=== PATIENT | female | born 1950 | race Caucasian/White ===

== ENCOUNTER → 2017-10-25 11:40 | Outpatient (CLI) | payer MEDICARE, SELFPAY ==
[2017-10-25 12:13] LABS: Bacteria 0 SEEN /hpf (None Seen); Mucous, Urine 0 SEEN /hpf (<or=2+); Red Blood Cells-Urine 0 SEEN /hpf (0-5); White Blood Cells 0 SEEN /hpf (0-5)
[2017-10-25 12:25] LABS: Color, Urine Yellow (Yellow); Glucose, Dipstick Normal (Normal); Ketone-Dipstick Negative (Negative); Leukocyte Esterase-Dipstick Negative /ul (Negative); Nitrite-Dipstick Negative (Negative); Occult Blood-Urine Negative /ul (Negative); Protein-Dipstick Negative (Negative); Specific Gravity, Urine 1.015 (1.002-1.030); Urine Bilirubin Dipstick Negative (Negative); Urine Clarity Clear (Clear); Urine Urobilinogen Normal (Normal)
[2017-10-25 12:26] LABS: Erythrocyte Sedimentation Rate 9 mm/hr (0-30)
[2017-10-25 12:39] LABS: ALB/GLOB Ratio 0.9 RATIO (0.9-2.4); AST(SGOT) 38 U/L (15-37); Alanine Aminotransfer ALT/SGPT 48 U/L (13-56); Albumin, Serum 3.6 g/dL (3.2-5.0); Alkaline Phosphatase 134 U/L (45-117); Anion Gap 4 (5-15); BUN 19 mg/dL (7-18); CRP 9.88 mg/L (0.0-3.0); Calcium,Total 8.8 mg/dL (8.5-10.1); Chloride 108 mmol/L (98-107); Cholesterol 220 mg/dL (200); Creatinine, Serum 1.19 mg/dL (0.55-1.02); EST Glomerular Filtration Rate 48 mL/min (>60); Est Glom Filt Rate - Afr Amer 58 mL/min (>60); Globulin 4.1 g/dL (2.2-4.2); Glucose 98 mg/dL (74-106); High Density Lipoprotein 57 mg/dL; Potassium 4.3 mmol/L (3.5-5.1); Protein, Total 7.7 g/dL (6.4-8.2); Rheumatoid Factor < 10.0 IU/mL (<15); Sodium Level 143 mmol/L (136-145); Squamous Epithelial Cells - UA 0-5 SEEN /hpf (5-10); Thyroid Stim Hormone (TSH) 1.18 uIU/mL (0.358-3.74); Triglycerides 60 mg/dL; Very Low Density Lipoprotein 12 mg/dL (5-40)
[2017-10-26 12:56] LABS: ANTINUCLEAR ANTIBODIES DIRECT Negative (Negative)
== END ==
PROVIDERS: Family Provider Family Medicine; PCP Family Medicine; Visit Provider Family Medicine
DX: M25.50 Pain in unspecified joint (principal); E78.2 Mixed hyperlipidemia; E03.9 Hypothyroidism, unspecified
CPT/HCPCS: 80053; 80061; 81001; 84443; 85652; 86038; 86140; 86431

== ENCOUNTER 2017-10-28 15:33 | Emergency (ER) | payer MEDICARE, SELFPAY ==
[2017-10-28] VITALS (7 sets, daily range): BP systolic 125–165; BP diastolic 56–80; PULSE 71–81; RESP 12–25; TEMP 36.6; O2SAT 97–99; BMI 36.3
--- NOTE | 2017-10-28 15:52 | EKG12_ITS ---
Test Reason : CHEST PAIN Blood Pressure : / mmHG Vent. Rate : 064 BPM Atrial Rate : 064 BPM P-R Int : 132 ms QRS Dur : 096 ms QT Int : 420 ms P-R-T Axes : 044 039 019 degrees QTc Int : 433 ms Sinus rhythm with marked sinus arrhythmia Nonspecific ST abnormality Abnormal ECG Confirmed by HARI LANDA ([id number]), avid editor OMAIRA COUGHLIN ([id number] on 11/01/2017 4:01:02 PM Referred By: Zach Jerez Confirmed By:HARI LANDA
--- NOTE | 2017-10-28 15:53 | RAD_ITS ---
STUDY: X-RAY CHEST REASON FOR EXAM: Female, 67 years old. Intermittent chest pain and shortness of breath. TECHNIQUE: 2 views COMPARISON: None. FINDINGS: Lung benjamin are generally well expanded with multifocal linear areas of atelectasis or infiltrate that are occurring mostly in the right middle lobe and left lung base. Negative for pleural effusion. Normal size heart. Normal mediastinum and shasta. Normal visualized pulmonary arteries. Normal visualized aortic arch and descending thoracic aorta. There are diffuse degenerative changes of the visualized thoracic spine. Normal visualized ribs, clavicles, and shoulders. There is no demonstrated abnormality of the visualized soft tissue structures of the upper abdomen. RAD/Chest PA and Lateral IMPRESSION: Multifocal small linear areas of atelectasis or scarring in the right middle lobe and left lower lobe. Otherwise negative for major consolidation, cardiomegaly or pleural effusion. Electronically Signed: Migdalia Mcgowan MD at 16:27 EDT , Service support ,
--- NOTE | 2017-10-28 15:57 | ED.VISSUMM ---
- ER Visit Summary Date of Service: 10/28/17 Chief Complaint: Chest pain History of Present Illness: The patient is a 67 F who presents with chest pain that has been intermittent for the past week. Patient saw her primary care physician today who referred her to the emergency department due to the chest pain and shortness of breath she has been having. Patient states her pain is over the lower sternal area. Patient denies any radiation of the pain. Patient states nothing seems to make the pain better but it is worse when she lays flat. Patient admits to some nausea but denies any vomiting. Patient admits to a cough that is worse at night and in the morning. Patient denies any fevers or chills. Patient denies any lightheadedness. Physical Examination: Vital signs are stable. Patient is afebrile. Patient is in no acute distress. Oral mucosa is pink and moist. Neck is supple. Trachea is midline. There is no JVD or lymphadenopathy. Heart was regular rate and rhythm. Lungs show bibasilar rales. There is good respiratory effort noted. Abdomen is soft. Bowel sounds are normal. There is no tenderness. Extremities are intact. There is trace edema lower extremities bilaterally. There is no calf tenderness noted. Cranial nerves II through XII are intact. There are no focal motor or sensory deficits noted. The remaining physical exam is within normal limits. Test Results: EKG showed a normal sinus rhythm with a rate of 64. There are no acute ST or T-wave changes. CBC was within normal limits. Basic metabolic profile shows slightly elevated creatinine of 1.15. Troponin was less than 0.02. BNP was normal at 31.6. D-dimer was elevated at 0.61. Chest x-ray shows atelectasis but no acute infiltrates. CTA of the chest was obtained. There is no evidence of pulmonary embolism. Emergency Department Course and Treatment: Patient felt better on reevaluation. Patient was given a prescription for an albuterol inhaler. Patient was instructed to follow-up with her primary care physician in 7-10 days. Patient understood and was agreeable with the plan. All questions were answered. Disposition: Discharged home Impression: Dyspnea This note was generated with monEchelleation software. It may contain incorrect words, spelling, and punctuation that were not noted in review of the chart prior to signing ED Disposition - Plan for ED Patient: Disposition: Home or Assisted Living Chief Complaint: Chest Pain Diagnosis: Dyspnea Instructions: ED Dyspnea Shortness of Breath Prescriptions: Albuterol Inhaler [Ventolin Hfa] 1 - 2 puff INHALATION Q4H PRN PRN #1 inhaler PRN Reason: Wheezing Referrals: Zach Jerez MD [Primary Care Provider] -
[2017-10-28] MEDS: Aspirin 81 MG TAB.CHEW 324 MG PO (16:03)
[2017-10-28 16:07] LABS: Absolute Lymphocyte Count 1.91 X10^3/ul (0.83-4.51); Absolute Neutrophil Count 3.2 X10^3/uL (2.0-7.7); Basophil# 0.03 X10^3/uL; Basophil% 0.5 % (0-1); Eosinophil# 0.18 X10^3/uL; Eosinophils% 3.2 % (0-5); Hematocrit 41.2 % (37-47); Hemoglobin 13.4 g/dl (12.0-15.0); Lymphocyte # 1.91 X10^3/ul (4.0); Lymphocyte % 34.1 % (19-41); Mean Corp Hgb Conc 32.5 g/gl (32-36); Mean Corpuscular Hgb 30.7 pg (27.0-32.0); Mean Corpuscular Volume 94.5 fL (81-99); Monocyte% 5.4 % (0-10); Neutrophil # 3.18 X10^3/uL (2.7-7.7); Neutrophil % 56.8 % (47-70); Platelet Count 233 K/mm3 (150-450); RBC Distribution Width SD 40.4 fl (35.1-43.9); Red Blood Count 4.36 M/mm3 (4.2-5.4); White Blood Count 5.6 K/mm3 (4.4-11.0)
[2017-10-28 16:24] LABS: Anion Gap 7 (5-15); BUN 15 mg/dL (7-18); Calcium,Total 8.6 mg/dL (8.5-10.1); Chloride 109 mmol/L (98-107); Creatinine, Serum 1.15 mg/dL (0.55-1.02); EST Glomerular Filtration Rate 50 mL/min (>60); Est Glom Filt Rate - Afr Amer 61 mL/min (>60); Glucose 106 mg/dL (74-106); Potassium 3.6 mmol/L (3.5-5.1); Sodium Level 143 mmol/L (136-145)
[2017-10-28 16:32] LABS: POSITIVE COUNT NO; POSITIVE DIFFERENTIAL NO; POSITIVE MORPHOLOGY NO
[2017-10-28 16:34] LABS: D-Dimer Quantitative (DVT/PE) 0.61 FEU/ug/m (0.27-0.49)
--- NOTE | 2017-10-28 16:34 | ED.RN ---
DDIMER 0.[address] LAB. DR JOHNSON AWARE
--- NOTE | 2017-10-28 16:36 | CT_ITS ---
STUDY: CTA CHEST REASON FOR EXAM: Female, 67 years old. Elevated d-dimer, intermittent chest pain and shortness of breath. History of hypothyroidism and asthma. RADIATION DOSAGE (If Supplied By Facility): CTDIvol = ( 16.22 ) mGy, DLP = ( 647.22 ) mGycm TECHNIQUE: The examination was performed with the intravenous administration of 100 ml of Isovue 370 contrast material. Post-processing of the angiographic images was performed, with multiplanar reformation and 3D reconstruction. Individualized dose optimization techniques were used for this CT. COMPARISON: Chest radiograph of October 28, 2017 FINDINGS: Normal enhancement of the main pulmonary artery and right and left pulmonary arteries. Normal enhancement of the bilateral peripheral pulmonary arteries. There is no demonstrated pulmonary embolism. Mild plaque and elongation of the thoracic aorta without aneurysm or dissection. There is no demonstrated aortic dissection. Normal heart and pericardium. Normal mediastinum. Shotty hilar lymph nodes. Generalized bronchial thickening with more substantial bronchial thickening of the bilateral lower lobes. Focal transverse linear opacity of the anterior right lung, middle lobe and focal broad linear opacity of the left lung base just above the diaphragm, anterior left lower lobe and lingula. Negative for substantial pleural effusion. Normal chest wall structures. There are degenerative changes of thoracic spine. Normal visualized upper abdomen. CT/CTA Chest W/WO Contrast IMPRESSION: Negative for pulmonary embolus. Mild atherosclerotic changes of the thoracic aorta without aneurysm or dissection. Normal cardiac size. Negative for pericardial effusion. Generalized bronchial thickening with more substantial bronchial thickening of the bilateral lower lobes. Focal linear opacities of the anterior right middle lobe and left lung base just above the diaphragm of the left lower lobe and lingula. Focal atelectasis versus scarring. Negative for pleural effusion. Electronically Signed: Migdalia Mcgowan MD at 17:43 EDT , Service support ,
[2017-10-28 16:45] LABS: BNP,B-Type NATRIURETIC PEPTIDE 31.6 pg/mL (0-100)
[2017-10-28] MEDS: 0.9% Normal Saline 1,000 ML 1000 ML IV (16:45)
== END 2017-10-28 19:28 | disposition home or self-care (01) ==
PROVIDERS: Emergency Provider Emergency Medicine; Family Provider Family Medicine; PCP Family Medicine
DX: R06.00 Dyspnea, unspecified (principal); E03.9 Hypothyroidism, unspecified; Z79.899 Other long term (current) drug therapy
CPT/HCPCS: 71046; 71275; 80048; 83880; 84484; 85025; 85379; 93005; 96360; 96361; 99285; J7030; Q9967; A4216

== ENCOUNTER → 2018-04-27 12:18 | Outpatient (CLI) | payer MEDICARE, SELFPAY ==
[2018-04-27 13:06] LABS: AST(SGOT) 34 U/L (15-37); Alanine Aminotransfer ALT/SGPT 47 U/L (13-56); Albumin, Serum 3.5 g/dL (3.2-5.0); Alkaline Phosphatase 137 U/L (45-117); Bilirubin, Direct 0.24 mg/dL (0.00-0.30); Cholesterol 222 mg/dL (200); Globulin 3.9 g/dL (2.2-4.2); High Density Lipoprotein 57 mg/dL; Protein, Total 7.4 g/dL (6.4-8.2); Triglycerides 80 mg/dL; Very Low Density Lipoprotein 16 mg/dL (5-40)
== END ==
PROVIDERS: Family Provider Family Medicine; PCP Family Medicine; Referring Provider Family Medicine; Visit Provider Family Medicine
DX: E03.9 Hypothyroidism, unspecified (principal); E78.2 Mixed hyperlipidemia
CPT/HCPCS: 80061; 80076; 84443